=== PATIENT | female | born 1995 | race Caucasian/White ===

== ENCOUNTER 2023-04-25 22:41 | Emergency (ER) | payer OTHER, MEDICAID ==
[~2023-04-25] VITALS: Ht 170.2 cm; Wt 79.4 kg
[2023-04-25 22:47] VITALS: BP_SYST 118; PULSE 79; RESP 18; TEMP 97.5; O2SAT 100
[2023-04-25] MEDS ORDERED: ACETAMINOPHEN 325 MG TABLET PO ONE (23:15)
[2023-04-26] MEDS ORDERED: CYCL10TA24 PO (00:14)
[2023-04-26] MEDS ORDERED: [UNRECOGNIZED DRUG - CODE] PO (00:15)
[2023-04-26 00:36] VITALS: BP_SYST 106; PULSE 65; RESP 18; TEMP 97.5; O2SAT 98
== END 2023-04-26 00:35 | disposition home or self-care (01) ==
LOC: SED 22:41
DX: S16.1XXA Strain of muscle, fascia and tendon at neck level, initial encounter (principal); S09.90XA Unspecified injury of head, initial encounter; R59.9 Enlarged lymph nodes, unspecified; Z79.899 Other long term (current) drug therapy; V89.2XXA Person injured in unspecified motor-vehicle accident, traffic, initial encounter; Y93.89 Activity, other specified; Y92.89 Other specified places as the place of occurrence of the external cause; Y99.8 Other external cause status
CPT/HCPCS: 70450-TC; 72125-TC; 76376; 81025; 99284